=== PATIENT | male | born 1965 | race Caucasian/White ===

== ENCOUNTER → 2020-06-07 09:02 | Outpatient (CLI) | payer OTHER, SELFPAY ==
[2020-06-08 08:32] LABS: COVID19 Sendout Not Detected (Not Detect)
== END ==
PROVIDERS: Visit Provider Nurse Practitioner
DX: Z11.59 Encounter for screening for other viral diseases (principal)
CPT/HCPCS: 87635

== ENCOUNTER 2020-06-10 13:23 | Day surgery (SDC) | payer OTHER, SELFPAY ==
--- NOTE | 2020-06-10 | PATH_ITS ---
[facility] Accession Number: [id number] . 01 Material submitted: . colon - SIGMOID COLON POLYP 4MM . 01 Clinical history: . SDC . 02 Diagnosis: Sigmoid Colon Polyp, 4 mm, Biopsy: Tubular adenoma. Additional step sections examined. [facility] 06/15/2020 1304 Local . 02 Electronically signed: . Clif Barnett MD, PhD, Pathologist NPI- [id number] . 01 Gross description: . Received in formalin, labeled with the patient's name, MRN, and 4 mm sigmoid colon, is a 0.4 cm in greatest dimension, brown-white, irregular fragment of tissue. The entire specimen is submitted in cassette A1. ([id number]) /[facility] 06/15/2020 1305 Local . 02 Pathologist provided ICD-10: D12.5 . 02 CPT . 139365 Performed at: 01 [facility] [address] [place] [address], [place], [place] [id number] MD Celio Collier MD Phone: [phone] Performed at: 02 [facility] [address] [place], [place] [id number] MD Ritu Ceballos MD Phone: [phone]
--- NOTE | 2020-06-10 11:42 | PM.HP.1 ---
History of Present Illness History of Present Illness Date Patient Seen: 06/10/20 Chief complaint: SDC Narrative: 55 Years Old Male seen today for consideration of a screening colonoscopy. He has never had a colonoscopy. There have been no lower GI symptoms suggesting disease such as change in bowel habits, bleeding, abdominal pain or anemia. There's been no family history of colon cancer or colon polyps. Overall health issues have been stable, including no major cardiac events for at least 6 weeks. Current Medications: 1) Atorvastatin Calcium 20 Mg Oral Tablet (Atorvastatin Calcium) .... Take 1 tablet by mouth daily for cholesterol control. 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 Members: none Education: 4yr college Alcohol drinks/day: 0 Type of Exercise: none Meds Home Medications and Allergies Home Medications Medication Instructions Recorded Confirmed Type atorvastatin See Rx Instructions .ROUTE .COMPLEX 06/10/20 06/10/20 History Allergies Allergy/AdvReac Type Severity Reaction Status Date / Time No Known Drug Allergies Allergy Unverified 06/10/20 13:36 Review of Systems Review of Systems ROS: Yes All systems reviewed with the patient and are negative except as otherwise documented Exam Narrative Exam Narrative: GENERAL: Alert and oriented, appearing stated age and in no acute distress. HEENT: Head normocephalic/atraumatic. Pupils equal, round, and reactive to light and accomodation. Extraocular muscles intact. Tympanic membranes clear. Nasal mucosa moist, septum midline. Oral mucosa moist, no lesions. Neck soft and supple, no lymphadenopathy. LUNGS: Clear to ausculation bilaterally, no wheezes, rhonchi or rales. CV: Normal S1 and S2 with regular rate and rhythm, no audible murmurs, rubs or gallops. ABDOMEN: Soft, non-tender, non-distended, no organomegaly. Positive bowel sounds. EXTREMITIES: No clubbing, cyanosis, or edema. NEURO: Cranial nerves II through XII grossly intact, no focal deficits. PSYCH: Alert and oriented x 3. SKIN: No concerning lesions. Assessment & Plan Assessment & Plan narrative: 1. Screening for colon cancer Plan for colonoscopy. The nature and character of the procedure as well as anticipated results were discussed. The possibility of not completing the procedure was also discussed. Possible complications including aspiration pneumonia, bleeding, perforation and reaction to medications either for sedation or preparation and missed lesions were discussed. Questions were answered and proceeding to the colonoscopy was elected. Informed consent signed. I sincerely appreciate the referral allowing me to participate in this patient's care. Please contact me with any questions or concerns.
--- NOTE | 2020-06-10 11:43 | PM.OP.ENDO ---
Operative Date/Time/Diagnoses Date of procedure: 06/10/20 Procedure Notes SCOAP/Timeout: 2:11 p.m. Procedure in detail: ENDOSCOPIST: Christina Soliman MD Sedation RN: Ekaterina Leal RN Sedation start time: 2:12 p.m. Sedation end time: 2:44 p.m. PROCEDURE: Colonoscopy INDICATIONS: 1. Screening for colon cancer MEDICATION: Levsin 0.125 mg sublingual, incremental doses of Versed and fentanyl until appropriate level sedation achieved. ASA CLASS: 1 CECAL WITHDRAWAL TIME: 16 minutes COMPLICATIONS: None. EXTENT OF PROCEDURE: Cecum. QUALITY OF PREP: Good with portions of liquid stool. PROCEDURE: Prior to insertion of the colonoscope, a digital rectal examination was accomplished with circumferential palpation of the distal rectal mucosa without significant findings being noted. The high-definition colonoscope was passed into the rectum in the usual fashion and advanced over to the cecum without difficulty. The ileocecal valve, appendiceal stoma, and medial wall all could be inspected and no abnormalities were seen. ASCENDING COLON: As the colonoscope was withdrawn, care was taken to expose and inspect the haustral folds and no abnormalities were seen. HEPATIC FLEXURE: Normal, no polyps, diverticula or other abnormalities. TRANSVERSE COLON: Normal, no polyps, diverticula or other abnormalities. DESCENDING COLON: Normal, no polyps, diverticula or other abnormalities. SIGMOID COLON: 4 mm polyp was seen and removed with cold biopsy forceps, excellent hemostasis. Otherwise, no diverticula or other abnormalities. RECTUM: Normal. J maneuver was produced. There was no significant perianal disease. The J maneuver was broken. The remainder of the rectum was inspected and there was no external hemorrhoid disease. The scope was withdrawn. IMPRESSION: 1. Sigmoid polyp x1, 4 mm, removed with cold biopsy forceps. PLAN: 1. Follow-up in clinic status post pathology results. The possibility of a missed lesion including a malignancy has been discussed with the patient previously. Potential alarm symptoms have been discussed and should be reported immediately.
[2020-06-10] MEDS: LACTATED RINGERS 1,000 ML 200 ML IV (13:44)
[2020-06-10] MEDS: HYOSCYAMINE 0.125 MG TABLET PO (13:47)
[2020-06-10 13:48] VITALS: BP 126/79; PULSE 89; RESP 16; TEMP 36.6; O2SAT 99; BMI 25.5
[2020-06-10] MEDS: MIDAZOLAM 5 MG/5 ML VIAL IV ×4 (14:12→14:21)
[2020-06-10] MEDS: fentaNYL 250 MCG/5 ML INJ IV ×3 (14:12→14:23)
[2020-06-10 14:49] VITALS: BP 108/67; PULSE 71; RESP 12; TEMP 36.3; O2SAT 97
[2020-06-10 14:54] VITALS: BP 123/69; PULSE 88; RESP 16; O2SAT 98
[2020-06-10 14:59] VITALS: BP 112/79; PULSE 66; RESP 14; O2SAT 98
== END 2020-06-10 15:04 | disposition home or self-care (01) ==
PROVIDERS: PCP Student in an Organized Health Care Education/Training Program; Referring Provider Student in an Organized Health Care Education/Training Program; Visit Provider Student in an Organized Health Care Education/Training Program
PROC: 0DJD8ZZ Inspection of Lower Intestinal Tract, Via Natural or Artificial Opening Endoscopic (ICD-10-PCS; CPT 45378; principal; 2020-06-10 14:30)
DX: Z12.11 Encounter for screening for malignant neoplasm of colon (principal); D12.5 Benign neoplasm of sigmoid colon
CPT/HCPCS: 45380; J2250; J3010

== ENCOUNTER 2020-07-13 17:17 | Emergency (ER) | payer OTHER, SELFPAY ==
[2020-07-13 17:21] VITALS: BP 114/73; PULSE 87; RESP 14; TEMP 36.5; O2SAT 97; BMI 25.1
--- NOTE | 2020-07-13 18:53 | ED_ITS ---
HPI - Extremity Injury (Lower) General Chief Complaint: Extremity Injury, Lower Stated Complaint: left lin injury Time Seen by Provider: 07/13/20 18:06 Source: patient Mode of arrival: Ambulatory History of Present Illness HPI Narrative: Patient complains of injury to the left anterior leg. Using blanket washer 4:00 p.m. this afternoon 3 hours ago wearing shorts. The nozzle make contact with his medial mid left lin/leg. wool washer he states provides 2800 psi. Was bring water. Up-to-date with tetanus. Denies denies any numbness tingling or weakness. Denies any cramping or pressure pain sensation to the calf or leg. No pain out of proportion to exam at this time. No bleeding. There is skin injury/avulsion at the mid medial anterior wrist for left leg. Ovoid shape. 4 cm x 2 cm. Skin depth very very very superficial. less than 2 mm of bowel. No bone or muscle injury or tendon injury seen. Bloodless field help her. Based visualized I saw. Orthopedics has been paged complaint: leg injury Related Data Home Medications Medication Instructions Recorded Confirmed atorvastatin See Rx Instructions .ROUTE .COMPLEX 06/10/20 06/10/20 Previous Rx's Medication Instructions Recorded cephalexin [Keflex] 500 mg PO QID #20 cap 07/13/20 Allergies Allergy/AdvReac Type Severity Reaction Status Date / Time No Known Drug Allergies Allergy Verified 07/13/20 17:21 Review of Systems Review of Systems Narrative: GENERAL: Denies chills, fatigue, malaise, fever, sweats. HEENT: Denies sinus pain, ear pain, sore throat, difficulty swallowing, dizziness. RESPIRATORY: Denies dyspnea, cough, wheezing, hemoptysis, sputum. CARDIOVASCULAR: Denies chest pain, palpitations, orthopnea, edema, GASTROINTESTINAL: Denies nausea, vomiting, abdominal pain, diarrhea, co nstipation, melena. : Denies dysuria, frequency, incontinence, hematuria, urinary retention. MUSCULOSKELETAL: denies weakness, joint pain, or bony pain SKIN: Denies rash, complains of skin injury NEUROLOGIC: Denies weakness, headache, numbness, change in speech, confusion, seizures, incoordination. PSYCHIATRIC: No concerning psychosocial issues. ROS Unobtainable: All systems reviewed & are unremarkable except as noted in HPI and below Patient History Social History household members: none Smoking Status: Never smoker alcohol intake: former Smoking Status: Never smoker Substance Use Type: does not use Exam Narrative Exam Narrative: GENERAL: patient appears stated age. Well-nourished, well-develo ped patient, in no distress, not toxic HEAD: Atraumatic. Normocephalic. . EXTREMITIES: Left knee 2 toes exposed. Foot is warm soft repeat strong pedal pulses like to check to foot and toes. Nontender knee and ankle. There is an ovoid skin injury 4 cm x 2 cm in oblique direction at mid medial anterior leg. less than 2 mm. No bone or tendon or muscle injury seen. No active bleeding. Based visualized. No foreign body. No no no pain out of proportion to exam. Light touch intact to foot and toes. Calf is soft. Grossly symmetric to the right calf.. NEURO: AOx4. SKIN: No rash or erythema of visible areas PSYCH: Not anxious, is cooperative Initial Vital Signs Initial Vital Signs: Vital Signs Temperature 97.7 F 07/13/20 17:21 Pulse Rate 87 07/13/20 17:21 Respiratory Rate 14 07/13/20 17:21 Blood Pressure 114/73 07/13/20 17:21 Pulse Oximetry 97 07/13/20 17:21 Course Course Course Narrative: No complaints of pressure pain to the calf. No pain out of proportion to exam. Orders Ordered: ED Orders 07/13/20 19:15 Complete Blood Count AUTO DIFF Stat Comprehensive Metabolic Panel Stat Creatine Kinase Stat Discontinued Medications Cephalexin HCl (Keflex) 500 mg PO NOW ONE Stop: 07/13/20 18:53 Last Admin: 07/13/20 19:22 Dose: 500 mg Documented by: CARSON Reevaluation(s) Reevaluation #1: No new complaints. No numbness tingling weakness or swelling. Time: 19:09 Reevaluation #2: Wound has been clean. Reviewed labs with patient. No changes in wound/leg. Toe tightening or cramping or pain out of proportion to exam Time: 20:04 Consultations Consultation #1: Spoke with orthopedic dr leung... Low likelihood of developing compartment syndrome. Water was used and does not be washed out. Patient can call the office in the morning for evaluation and recheck. No criteria/alfredo cation for admission at this time. Time: 19:01 Vital Signs Vital signs: Vital Signs - 8 hr 07/13/20 17:21 07/13/20 18:59 07/13/20 19:00 Temperature 97.7 F Pulse Rate 87 70 70 Respiratory Rate 14 Blood Pressure 114/73 116/72 114/70 Pulse Oximetry 97 97 96 MDM - Extremity Injury (Lower) Differential Diagnosis Differential diagnosis: Likely other (High-pressure injury./compartments in) Lab Data Attestation: I reviewed the patient's lab results. Result diagrams: 07/13/20 19:15 07/13/20 19:15 Labs: Lab Results 07/13/20 07/13/20 Range/Units 19:15 19:15 WBC 7.1 (4.5-11.0) X10^3/uL RBC 4.30 L (4.5-5.9) X10^6/uL Hgb 13.6 (13.5-17.5) g/dL Hct 38.9 L (41-53) % MCV 90.5 (80-100) fL MCH 31.6 (26-34) PG MCHC 34.9 (30-36) % RDW 12.9 (11.6-14.8) % Plt Count 226 (150-400) X10^3/uL Neut % (Auto) 68.0 (50-75) % Lymph % (Auto) 21.0 L (25-40) % Hettinger % (Auto) 9.0 (3-14) % Eos % (Auto) 1.5 L (2-4) % Baso % (Auto) 0.5 (0-2) % Neut # (Auto) 4900 (7107-0319) /uL Lymph # (Auto) 1500 (0164-8339) /uL Hettinger # (Auto) 600 (0-900) /uL Eos # (Auto) 100 (0-450) /uL Baso # (Auto) 0 (0-100) /uL Sodium 139 (137-145) mmol/L Potassium 3.9 (3.4-5.1) mmol/L Chloride 106 (98-107) mmol/L Carbon Dioxide 25 (22-32) mmol/L BUN 26 H (9-20) mg/dL Creatinine 0.96 (0.66-1.25) mg/dL Estimated GFR > 60.0 (>60) mL/min BUN/Creatinine Ratio 27.1 H (6-22) Glucose 98 (70-100) mg/dL Calcium 9.1 (8.4-10.2) mg/dL Total Bilirubin 1.0 (0.2-1.3) mg/dL AST 31 (17-59) IU/L ALT 57 H (<50) IU/L Alkaline Phosphatase 49 (38-126) U/L Total Creatine Kinase 72 (55-170) U/L Total Protein 7.1 (6.3-8.2) g/dL Albumin 4.2 (3.5-5.0) g/dL Globulin 2.9 (1.7-4.1) g/dL Albumin/Globulin Ratio 1.4 (1.0-2.8) MDM Narrative Medical decision making narrative: Reviewed case with Orthopedics. No imaging indicated this time. No admission indicated this time. Appropriate for discharge home. Patient will contact office in the morning with orthopedics for recheck Discharge Plan Departure Patient Disposition: Home Clinical Impression: Avulsion of skin Instructions: DI for Abrasion Activity Restrictions/Additional Instructions: Change dressing twice a day with warm soapy water and topical antibiotic. Be sure to called provided orthopedic office in the morning for recheck of your wound over the phone. They are expecting your phone call. Return if worse or if any questions or concerns or increased pain to the leg or swelling or discoloration or numbness tingling or weakness to the leg/foot. Keflex has been sent to your pharmacy [facility] in [place] Prescriptions: New cephalexin [Keflex] 500 mg capsule 500 mg PO QID Qty: 20 RF: 0 No Action atorvastatin 20 mg Tablet See Rx Instructions .ROUTE .COMPLEX RF: 0 Referrals: Christina Soliman MD [Primary Care Provider] - Jim Leung MD [Physician] -
[2020-07-13 18:59] VITALS: BP 116/72; PULSE 70; O2SAT 97
[2020-07-13 19:00] VITALS: BP 114/70; PULSE 70; O2SAT 96
--- NOTE | 2020-07-13 19:00 | PC.NURSE ---
pt pressure washing and accidently hit L lin with spray causing a puncture wound and abrasion
--- NOTE | 2020-07-13 19:12 | PC.NURSE ---
report given to JAC Cardona
[2020-07-13] MEDS: cephALEXin 250 MG CAPSULE 500 MG PO (19:22)
[2020-07-13 19:30] VITALS: BP 116/74; PULSE 77; O2SAT 97
[2020-07-13 19:30] LABS: Add Manual Diff / Slide Review NO; Basophils Absolute Auto 0 /uL (0-100); Basophils Percent Auto 0.5 % (0-2); Eosinophils Absolute Auto 100 /uL (0-450); Eosinophils Percent Auto 1.5 % (2-4); Hematocrit 38.9 % (41-53); Hemoglobin 13.6 g/dL (13.5-17.5); Lymphocytes Absolute Auto 1500 /uL (1100-4500); Mean Corpuscular HGB Conc 34.9 % (30-36); Mean Corpuscular Hemoglobin 31.6 PG (26-34); Mean Corpuscular Volume 90.5 fL (80-100); Monocytes Absolute Auto 600 /uL (0-900); Neutrophils Absolute Auto 4900 /uL (1500-7000); Platelet Count 226 X10^3/uL (150-400); Red Cell Distribution Width 12.9 % (11.6-14.8); White Blood Cell Count 7.1 X10^3/uL (4.5-11.0)
[2020-07-13 19:40] LABS: Alanine Aminotransferase 57 IU/L (<50); Albumin 4.2 g/dL (3.5-5.0); Albumin Globulin Ratio 1.4 (1.0-2.8); Alkaline Phosphatase 49 U/L (38-126); Aspartate Aminotransferase 31 IU/L (17-59); BUN Creatinine Ratio 27.1 (6-22); Blood Urea Nitrogen 26 mg/dL (9-20); Calcium 9.1 mg/dL (8.4-10.2); Carbon Dioxide 25 mmol/L (22-32); Chloride 106 mmol/L (98-107); Creatine Kinase 72 U/L (55-170); Estimated Glomerular Filt Rate > 60.0 mL/min (>60); Globulin 2.9 g/dL (1.7-4.1); Glucose 98 mg/dL (70-100); HEMOLYSIS < 15 (0-50); Potassium 3.9 mmol/L (3.4-5.1); Sodium 139 mmol/L (137-145); Total Protein 7.1 g/dL (6.3-8.2)
[2020-07-13 20:00] VITALS: BP 111/71; PULSE 68; O2SAT 95
== END 2020-07-13 20:12 | disposition home or self-care (01) ==
PROVIDERS: Emergency Provider Emergency Medicine; PCP Student in an Organized Health Care Education/Training Program
DX: S81.802A Unspecified open wound, left lower leg, initial encounter (principal)
CPT/HCPCS: 80053; 82550; 85025; 99283

== ENCOUNTER 2024-12-10 17:12 | Emergency (ER) | payer OTHER, SELFPAY ==
[2024-12-10 17:29] VITALS: BP 132/75; PULSE 74; RESP 17; TEMP 36.6; O2SAT 98; BMI 25.1
[2024-12-10] MEDS: TET,DIPH,PERTUSS(ACELL),VAC/PF 0.5 ML SYRINGE IM (17:59)
--- NOTE | 2024-12-10 18:13 | ED_ITS ---
HPI - Wound/Laceration <COREY Yu - Last Filed: 12/10/24 18:20> General Chief Complaint: Wound/Laceration Stated Complaint: hand laceration Time Seen by Provider: 12/10/24 17:48 Source: patient Mode of arrival: Ambulatory History of Present Illness HPI narrative: 59-year-old male never smoker, presents to the emergency department with laceration to left palm that occurred while cutting potatoes for dinner approximately 1 hour ago. Patient is unsure of his last tetanus shot but knows it was greater than 5 years ago. Wound was cleansed at home and bleeding is being controlled with direct pressure. Related Data Allergies Allergy/AdvReac Type Severity Reaction Status Date / Time No Known Drug Allergies Allergy Verified 12/10/24 17:31 Review of Systems <COREY Yu - Last Filed: 12/10/24 18:20> Review of Systems Narrative: Narrative: See HPI. GENERAL: Denies chills, fatigue, fever, sweats. RESPIRATORY: Denies dyspnea, cough, wheezing, sputum. CARDIOVASCULAR: Denies chest pain, palpitations, edema. MSK: Denies weakness, joint pain, or bony pain. SKIN: Denies rash, skin lesions, or pruritis. Endorses laceration left palm. NEUROLOGIC: Denies weakness, dizziness, headache, numbness, confusion. Patient History <COREY Yu - Last Filed: 12/10/24 18:20> Social History household members: none Smoking Status: Never smoker alcohol intake: former Smoking Status: Never smoker Exam <COREY Yu - Last Filed: 12/10/24 18:20> Narrative Exam Narrative: Exam Narrative: GENERAL: This is a well-nourished, well-developed patient, in no acute distress HEAD: Atraumatic. Normocephalic. ENT: Nose without bleeding, purulent drainage. Airway patent. RESPIRATORY: Respiratory rate and effort are normal. MSK: Moves all extremities. Normal range of motion, no clubbing or edema. Neurovascularly intact. Full strength of left hand and fingers. NEURO: A&O x 3. SKIN: Warm, dry, no rashes or lesions noted. 2 cm laceration of left palm with medial half superficial and lateral half full-thickness. Initial Vital Signs Initial Vital Signs: Vital Signs Temperature 98 F 12/10/24 17:29 Pulse Rate 74 12/10/24 17:29 Respiratory Rate 17 12/10/24 17:29 Blood Pressure 132/75 12/10/24 17:29 Pulse Oximetry 98 12/10/24 17:29 Oxygen Delivery Method Room Air 12/10/24 17:29 Reviewed <Connor Doyle MD - Last Filed: 12/10/24 21:43> Initial Vital Signs Initial Vital Signs: Vital Signs Temperature 98 F 12/10/24 17:29 Pulse Rate 74 12/10/24 17:29 Respiratory Rate 17 12/10/24 17:29 Blood Pressure 132/75 12/10/24 17:29 Pulse Oximetry 98 12/10/24 17:29 Oxygen Delivery Method Room Air 12/10/24 17:29 Procedures <COREY Yu - Last Filed: 12/10/24 18:20> Laceration Repair Laceration 1: Time of procedure: 18:10 Site: hand Side (If applicable): left Size (cm): 1 Description: linear Depth: simple, single layer Local Anesthetic: lidocaine 1% Amount of anesthesia used (mL): 2 Skin layer closed with: nylon Skin layer suture size: 5-0 Number of sutures: 3 Technique: simple, interrupted Course <COREY Yu - Last Filed: 12/10/24 18:20> Orders Ordered: Discontinued Medications Diphtheria/Tetanus/Acell Pertussis (Tet,Diph,Pertuss(Acell),Vac/Pf 0.5 Ml Syringe) 0.5 ml IM .ONCE ONE Stop: 12/10/24 17:57 Last Admin: 12/10/24 17:59 Dose: 0.5 ml Documented By: ODILON Vital Signs Vital signs: Vital Signs - 8 hr 12/10/24 17:29 12/10/24 18:19 Temperature 98 F Pulse Rate 74 66 Respiratory Rate 17 14 Blood Pressure 132/75 109/64 Pulse Oximetry 98 96 Oxygen Delivery Method Room Air Room Air <Connor Doyle MD - Last Filed: 12/10/24 21:43> Orders Ordered: Discontinued Medications Diphtheria/Tetanus/Acell Pertussis (Tet,Diph,Pertuss(Acell),Vac/Pf 0.5 Ml Syringe) 0.5 ml IM .ONCE ONE Stop: 12/10/24 17:57 Last Admin: 12/10/24 17:59 Dose: 0.5 ml Documented By: ODILON Vital Signs Vital signs: Vital Signs - 8 hr 12/10/24 17:29 12/10/24 18:19 Temperature 98 F Pulse Rate 74 66 Respiratory Rate 17 14 Blood Pressure 132/75 109/64 Pulse Oximetry 98 96 Oxygen Delivery Method Room Air Room Air MDM - Wound/Laceration <COREY Yu - Last Filed: 12/10/24 18:20> Differential Diagnosis Differential diagnosis: Likely laceration MDM Narrative Medical decision making narrative: 59-year-old male with laceration to left hand. Site was cleansed, anesthetized, irrigated, investigated for foreign bodies and closed with 3 5.0 sutures. Pressure dressing applied with instructions to remove the dressing within 24 hours and watch for signs of infection, if that occurs, to return for possible antibiotic therapy. Instructed patient to return to the ER or walk-in clinic in 10-14 days for suture removal. Tetanus status updated. Discussed plan of care and return precautions with patient, who verbalized understanding and was agreeable with course of action. Discharge Plan Departure Patient Disposition: Home Clinical Impression: Laceration Instructions: DI for Laceration Repair Activity Restrictions/Additional Instructions: *You have been diagnosed with a laceration of your left hand. We are able to closure wound with 3 sutures and applied a pressure dressing. You may remove the dressing within the next 24 hours and then watch for any signs of infection that include increased redness, swelling or yellow discharge. If this occurs, please return for possible antibiotic therapy. We have updated your tetanus status at this time. Please return to the emergency department or walk-in clinic in 10 to 14 days for suture removal. *What to do: *Please continue to take your regular medications as directed. [ ] New medication prescriptions sent to your pharmacy: [ ] [ ] New medication written as a paper prescription [ x] No new medications given *Please follow up with your primary care provider in 2-3 days, call for an appointment. Let them know you were seen in the Emergency Department and that we ask that you be seen in follow up. We will electronically transmit a record of today's note if your PCP is in our system *If you do not have a primary care provider please contact the [facility] Resource line at [phone]. They will ask some questions about your medical history and help get you set up with a doctor in the community. ? Return to ER if you should have any new, worsening or concerning symptoms, such as worsening pain, severe headache, confusion, chest pain, difficulty breathing, fever greater than 101 F, shaking chills, persistent vomiting to the point that you cannot drink fluids, or other new or worsening symptoms. Referrals: Christina Soliman MD [Primary Care Provider] - Stand Alone Forms: Patient Portal/API/Survey ED Sign-out <Connor Doyle MD - Last Filed: 12/10/24 21:43> Cosign ED Attending Cosignature Attestation: I was immediately available in the department for consultation. This documenta tion has been reviewed and I agree with assessment and plan. Supervised by Connor Doyle MD
[2024-12-10 18:19] VITALS: BP 109/64; PULSE 66; RESP 14; O2SAT 96
== END 2024-12-10 18:20 | disposition home or self-care (01) ==
PROVIDERS: Emergency Provider Registered Nurse; PCP Student in an Organized Health Care Education/Training Program
DX: S61.412A Laceration without foreign body of left hand, initial encounter (principal); W26.0XXA Contact with knife, initial encounter; Z23 Encounter for immunization
CPT/HCPCS: 12001; 90471; 99283; 90715